=== PATIENT | female | born 1975 | race Caucasian/White ===

== ENCOUNTER 2016-08-01 10:17 | Emergency (ER) | payer BC ==
[~2016-08-01] VITALS: Ht 157.5 cm; Wt 78.0 kg
[~2016-08-01 10:17] MED LIST: ACET500C5 PO; PEN500 PO
[2016-08-01 10:23] VITALS: Ht 157.5 cm; Wt 78.0 kg
[2016-08-01] MEDS ORDERED: AMO500 PO (11:37)
[2016-08-01] MEDS ORDERED: IBUP-1542 PO (11:37)
--- NOTE | 2016-08-01 11:41 | ERD ---
ER Documentation Chief Complaint Date/Time DATE: 08/01/16 TIME: 11:40 Chief Complaint SORE THROAT X 2 DAYS HPI This 41-year-old female presents with sore throat last 2 days. She may have had a tactile fever at home. There is no history of cough, vomiting, abdominal pain. She is here with her daughter with similar symptoms. ROS All systems reviewed and are negative except as per history of present illness. Medications Home Meds Active Scripts Amoxicillin* (Amoxicillin*) 500 Mg Cap, 500 MG PO TID for 10 Days, CAP Prov:PRINCE JOSEPH MD 08/01/16 Ibuprofen* (Motrin*) 600 Mg Tab, 600 MG PO Q6, #15 TAB Prov:PRINCE JOSEPH MD 08/01/16 Acetaminophen* (Tylophen*) 500 Mg Capsule, 2 CAP PO Q8H Y for PAIN AND OR ELEVATED TEMP, #20 CAP Prov:YESENIA STEWART 04/15/15 Penicillin V Potassium* (Penicillin V K*) 500 Mg Tab, 500 MG PO BID for 10 Days , TAB Prov:YESENIA STEWART 04/15/15 Allergies Allergies: Coded Allergies: No Known Drug Allergies (Verified Allergy, Mild, 04/15/15) PMhx/Soc History of Surgery: No Anesthesia Reaction: No Hx Neurological Disorder: No Hx Respiratory Disorders: No Hx Cardiac Disorders: No Hx Psychiatric Problems: No Hx Miscellaneous Medical Probl: No Hx Alcohol Use: Yes Hx Substance Use: No Hx Tobacco Use: No Physical Exam Vitals Vital Signs Date Time Temp Pulse Resp B/P Pulse Ox O2 Delivery O2 Flow Rate FiO2 08/01/16 10:23 98.2 78 16 116/59 98 Physical Exam Const: [] Alert, [id number] per Head: Atraumatic Eyes: Normal Conjunctiva ENT: Normal External Ears, Nose and Mouth. Slight redness in the throat without exudate and tonsils normal size. Airways patent. Neck: Full range of motion..~ No meningismus. Resp: Clear to auscultation bilaterally Cardio: Regular rate and rhythm, no murmurs Abd: Soft, non tender, non distended. Normal bowel sounds Skin: No petechiae or rashes Back: No midline or flank tenderness Ext: No cyanosis, or edema Neur: Awake and alert Psych: Normal Mood and Affect Procedures/MDM Patient presents with URI symptoms. She complains of a sore throat I suspect he has a viral illness. Patient is requesting antibiotics and will be administered prescription with counseling that is likely viral and I am recommending hold antibiotics for 3-4 days and take only for persistent symptoms. There is no evidence of abscess or respiratory distress. The patient was stable with no new complaints during the ER course. Clinically, there is no current evidence to suggest meningitis, sepsis, acute abdomen, pneumonia, acute coronary syndrome, pulmonary embolism, or any other emergent condition appearing to require further evaluation or hospitalization. The patient should certainly return for any new or worsening symptoms per the aftercare instructions. They should otherwise follow-up with her primary care doctor for reevaluation this week. Departure Diagnosis: Primary Impression: Sore throat Condition: Stable Patient Instructions: Pharyngitis, Strep (Presumed) Additional Instructions: We will treat for bacterial infection but may be viral illness which may last a few more days. Recheck for new or worsening symptoms or primary care doctor. PRINCE JOSEPH MD Aug 01, 2016 11:41
== END 2016-08-01 12:16 | disposition home or self-care (01) ==
LOC: FTE 10:17
DX: J02.9 Acute pharyngitis, unspecified (principal)
CPT/HCPCS: 99283

== ENCOUNTER 2016-10-22 08:50 | Emergency (ER) | payer BC ==
[~2016-10-22] VITALS: Wt 78.0 kg
[~2016-10-22 08:50] MED LIST changes: +AMO500 PO; +IBUP-1542 PO
[2016-10-22] MEDS ORDERED: AMOX1TAB10 PO (09:37)
--- NOTE | 2016-10-22 09:37 | ERD ---
ER Documentation Chief Complaint Date/Time DATE: 10/22/16 Chief Complaint Throat pain, Congestion, Facial pain, Ear pain HPI The patient is a 41-year-old female who presents to the Emergency Department with complaint of fevers, facial pain, sore throat, ear pain and congestion. The patient reports that her symptoms began 11 days ago, and have been persistent, with no improvement. She has been using NyQuil, DayQuil and Tylenol cold, with no significant relief of symptoms. She reports symptoms of fevers, nasal congestion, maxillary sinus pressure, which is worsened upon leaning forward, and sore throat. Additionally, over the past several days she has developed a pressure-like pain to the left ear. She denies any otorrhea or bloody discharge from the ear. Denies any change in hearing, tinnitus or dizziness. Denies neck pain, neck stiffness or new rashes. Denies difficulty opening/closing the mouth, change in phonation, or difficulty tolerating her oral secretions. Denies eye redness, discharge, or visual changes. Denies any sick contacts with similar symptoms. ROS All systems reviewed and are negative except as per history of present illness. Medications Home Meds Active Scripts Mometasone Furoate* (Nasonex*) 50 Mcg/[place] - 17 Gm [place].pump, 1 SPRAY NASAL DAILY, #1 BOTTLE TO EACH NOSTRIL Prov:FIDE ANGELO PA-C 10/22/16 Ibuprofen* (Motrin*) 600 Mg Tab, 600 MG PO Q6, #30 TAB Prov:FIDE ANGELO PA-C 10/22/16 Amoxicillin/Potassium Clav (Amox-Clav 875-125 mg Tablet) 875-125 mg Tab, 1 TAB PO BID for 7 Days, TAB Prov:FIDE ANGELO PA-C 10/22/16 Amoxicillin* (Amoxicillin*) 500 Mg Cap, 500 MG PO TID for 10 Days, CAP Prov:PRINCE JOSEPH MD 08/01/16 Ibuprofen* (Motrin*) 600 Mg Tab, 600 MG PO Q6, #15 TAB Prov:PRINCE JOSEPH MD 08/01/16 Acetaminophen* (Tylophen*) 500 Mg Capsule, 2 CAP PO Q8H Y for PAIN AND OR ELEVATED TEMP, #20 CAP Prov:YESENIA STEWART 04/15/15 Penicillin V Potassium* (Penicillin V K*) 500 Mg Tab, 500 MG PO BID for 10 Days , TAB Prov:YESENIA STEWART 04/15/15 Allergies Allergies: Coded Allergies: No Known Drug Allergies (Verified Allergy, Mild, 04/15/15) PMhx/Soc History of Surgery: No Anesthesia Reaction: No Hx Neurological Disorder: No Hx Respiratory Disorders: No Hx Cardiac Disorders: No Hx Psychiatric Problems: No Hx Miscellaneous Medical Probl: No Hx Alcohol Use: Yes Hx Substance Use: No Hx Tobacco Use: No Physical Exam Vitals Vital Signs Date Time Temp Pulse Resp B/P Pulse Ox O2 Delivery O2 Flow Rate FiO2 10/22/16 08:57 97.2 80 17 116/59 97 Physical Exam GENERAL: Well-developed, well-nourished, in no acute distress HEENT: Head is normocephalic, atraumatic. Tenderness to palpation and percussion over maxillary sinuses, right > left. No tenderness over frontal sinus. No scleral pallor or icterus. Pupils equal, round and reactive to light. Extraocular movements intact. Conjunctiva pink. No eye redness or discharge. Purulent nasal discharge. Bilaterally tympanic membranes are clear with no evidence of erythema, effusion or dulling of the light reflex. No mastoid tenderness. Moist mucous membranes. Posterior pharynx mildly erythematous with postnasal drip. No exudates. No palatal petechiae. Uvula is midline. No trismus. No stridor. No excessive drooling. Phonation is normal. No submandibular swelling. No brawny induration. NECK: Supple. No masses, no tenderness, no lymphadenopathy. Trachea midline. No nuchal rigidity. Full range of motion. No meningismus. RESPIRATORY: Lungs are clear to auscultation bilaterally. No rales, rhonchi or wheezing. Equal breath sounds. Normal expiratory effort. CARDIOVASCULAR: Regular rate and rhythm. S1 and S2 normal. No murmurs, rubs, or gallops. GASTROINTESTINAL: Abdomen is soft, nontender, and nondistended. FLANK: No CVA tenderness, no mass or swelling. BACK: No midline tenderness. EXTREMITIES: No clubbing, cyanosis, or edema. Normal skin perfusion. Moving all extremities. Muscle tone is normal. No focal swelling or erythema. NEUROLOGIC: The patient is alert, awake, and oriented x 3. INTEGUMENT: Skin is clean, dry and intact. No rashes, lesions or petechiae present. PSYCHIATRIC: Appropriate; Cooperative. Procedures/MDM This is a 41-year-old female presenting to the emergency department complaining of fevers, maxillary pressure-like facial pain, purulent rhinorrhea, nasal congestion and sore throat. On physical examination, she had tenderness to palpation and percussion over the maxillary sinuses, right > left. Purulent mucoid nasal discharge noted. Posterior pharynx was mildly erythematous with postnasal drip. Otherwise, no exudates or palatal petechiae. She exhibited no altered mental status, neurologic deficits or meningeal signs. She was afebrile , with no tachycardia, no tachypnea, no signs of respiratory distress. She had a normal O2 saturation on room air. Her lungs were clear to auscultation, with no rales, rhonchi or wheezing. The differential diagnosis includes, but is not limited to, meningitis, encephalitis, sinusitis, migraine headache, tension headache, cluster headache, pseudotumor cerebri, upper respiratory infection, sepsis, otitis media, pneumonia, pertussis, pharyngitis, bronchitis, influenza. No evidence of acute sepsis, bacteremia, dehydration, meningitis, or other life-threatening etiology. Her condition remained stable and appropriate during her stay. After rest, the patient reports no new complaints.. Upon my review and interpretation of the patient's presentation and overall ER course, I believe the patient's symptoms are most consistent with acute maxillary sinusitis. The patient is well-appearing. She had no physical examination evidence of pneumonia. Patient's neck was supple, with no altered mental status, and therefore I doubt meningitis. Oropharynx was clear, with no exudates, petechiae, no associated anterior cervical lymphadenopathy, and therefore I doubt streptococcal pharyngitis. Uvula midline, no brawny induration , no trismus, no stridor, no submandibular swelling, no evidence of peritonsillar abscess, retropharyngeal abscess or Stevan's angina. Tympanic membranes were clear bilaterally, with no erythema or bulging noted, and therefore I doubt otitis media. At this time, the patient is in stable condition and therefore she can be discharged home with a prescription for Augmentin, Nasonex and Ibuprofen, and strict return precautions for signs of deteriorating or worsening condition. The patient is advised to follow up with her primary care provider for reevaluation and further management within 2-3 days, or return to the ER sooner for any worsening symptoms. I shared my medical decision making and plan with the patient at length and in great detail , and she verbally understands and agrees with the plan for further observation and care as an outpatient. At the time of discharge, all questions were answered. Departure Diagnosis: Primary Impression: Acute maxillary sinusitis Recurrence: not specified as recurrent Qualified Code: J01.00 - Acute maxillary sinusitis, recurrence not specified Condition: Stable Patient Instructions: Acute Sinusitis, Self-Care for Sinusitis, Sinusitis, Abx Tx Additional Instructions: Call your primary care doctor TOMORROW for an appointment during the next 2-3 days.See the doctor sooner or return here if your condition worsens before your appointment time. FIDE ANGELO PA-C October 22, 2016 09:37
[2016-10-22] MEDS ORDERED: IBUP-1542 PO (09:38)
[2016-10-22] MEDS ORDERED: NASO17 NASAL (09:40)
== END 2016-10-22 10:16 | disposition home or self-care (01) ==
LOC: FTE 08:50
DX: J01.00 Acute maxillary sinusitis, unspecified (principal)
CPT/HCPCS: 99284

== ENCOUNTER 2017-02-27 12:08 | Emergency (ER) | payer BC ==
[~2017-02-27] VITALS: Ht 165.1 cm; Wt 70.5 kg
[~2017-02-27 12:08] MED LIST changes: -AMO500 PO; +AMOX1TAB10 PO; +AMOX500C2 PO; +NASO17 NASAL; -PEN500 PO; +PENI500T PO
[2017-02-27 12:13] VITALS: Ht 165.1 cm; Wt 70.5 kg
--- NOTE | 2017-02-27 13:03 | ERD ---
ER Documentation Chief Complaint Date/Time DATE: 02/27/17 TIME: 12:59 Chief Complaint sorethroat x2 days, no sob, bilateral foot pain x1wk, denies trauma HPI 42-year-old female who presents emergency department for sore throat for 2 days. Also complains of bilateral plantar foot pain. Denies any trauma. Also reports that she felt like she had a fever last night but never took her temperature. Stated that she took Tylenol and Motrin last night without pain relief. LMP: This week. A2. Denies any headache, dizziness, blurry vision, neck pain, difficulty swallowing , loss of appetite, coughing, chest pain, shoulder pain, back pain, abdominal pain, nausea, vomiting, constipation, diarrhea, urinary symptoms, loss of bowel bladder control, recent exposure to any illness, recent antibiotic use in the last 3 months. No known drug allergies. No past medical history. No surgical history. Medication: [id number] Tylenol and Motrin. 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 Denies smoking, use of illegal drugs. ROS All systems reviewed and are negative except as per history of present illness. Medications Home Meds Active Scripts Benzonatate* (Tessalon Perle*) 100 Mg Capsule, 200 MG PO Q8H Y for COUGH, #14 CAP Prov:BRIAN DOHERTY 02/27/17 Albuterol Sulfate* (Proair HFA*) 8.5 Gm Hfa.aer.ad, 2 PUFF INH Q4, #1 INHALER Prov:BRIAN DOHERTY F 02/27/17 Cyclobenzaprine Hcl* (Cyclobenzaprine Hcl*) 10 Mg Tablet, 10 MG PO Q12 Y for PAIN, #15 TAB Prov:PASBRIAN SO F 02/27/17 Ibuprofen* (Motrin*) 800 Mg Tab, 800 MG PO Q8 Y for PAIN AND OR ELEVATED TEMP, # 30 TAB Prov:BRIAN DOHERTY 02/27/17 Amoxicillin/Potassium Clav (Amox-Clav 875-125 mg Tablet) 875-125 mg Tab, 1 TAB PO BID for 7 Days, #14 TAB Prov:BRIAN DOHERTY F 02/27/17 Mometasone Furoate* (Nasonex*) 50 Mcg/[place] - 17 Gm [place].pump, 1 SPRAY NASAL DAILY, #1 BOTTLE TO EACH NOSTRIL Prov:FIDE ANGELO SANGEETHAWon 10/22/16 Ibuprofen* (Motrin*) 600 Mg Tab, 600 MG PO Q6, #30 TAB Prov:FIDE ANGELO PA-C 10/22/16 Amoxicillin/Potassium Clav (Amox-Clav 875-125 mg Tablet) 875-125 mg Tab, 1 TAB PO BID for 7 Days, TAB Prov:FIDE ANGELO SANGEETHAJosueDori 10/22/16 Amoxicillin* (Amoxicillin*) 500 Mg Cap, 500 MG PO TID for 10 Days, CAP Prov:PRINCE JOSEPH MD 08/01/16 Ibuprofen* (Motrin*) 600 Mg Tab, 600 MG PO Q6, #15 TAB Prov:PRINCE JOSEPH MD 08/01/16 Acetaminophen* (Tylophen*) 500 Mg Capsule, 2 CAP PO Q8H Y for PAIN AND OR ELEVATED TEMP, #20 CAP Prov:YESENIA STEWART 04/15/15 Penicillin V Potassium* (Penicillin V K*) 500 Mg Tab, 500 MG PO BID for 10 Days , TAB Prov:YESENIA STEWART 04/15/15 Allergies Allergies: Coded Allergies: No Known Drug Allergies (Verified Allergy, Mild, 04/15/15) PMhx/Soc History of Surgery: No Anesthesia Reaction: No Hx Neurological Disorder: No Hx Respiratory Disorders: No Hx Cardiac Disorders: No Hx Psychiatric Problems: No Hx Miscellaneous Medical Probl: No Hx Alcohol Use: Yes Hx Substance Use: No Hx Tobacco Use: No Physical Exam Vitals Vital Signs Date Time Temp Pulse Resp B/P Pulse Ox O2 Delivery O2 Flow Rate FiO2 02/27/17 12:13 97.6 94 20 102/53 97 Physical Exam Const: [] Head: Atraumatic Eyes: Normal Conjunctiva ENT: Normal External Ears, Nose and Mouth. Frontal and maxillary sinus tenderness. Throat: Uvula is in midline and not displaced. Tonsils are bilaterally +1 without redness and without exudates. Tolerating secretions. Patent airway. Speaks full and clear sentences. Neck: Full range of motion..~ No meningismus. Resp: Clear to auscultation bilaterally Cardio: Regular rate and rhythm, no murmurs Abd: Soft, non tender, non distended. Normal bowel sounds Skin: No petechiae or rashes Back: No midline or flank tenderness Ext: No cyanosis, or edema. Bilateral hips are stable and unremarkable. Lateral knees are stable and unremarkable. Bilateral ankle/foot has no evidence of trauma and has good and full range of motion without tenderness. Mild tenderness to palpation to bilateral plantar area. Skin is intact. Neur: Awake and alert Psych: Normal Mood and Affect Procedures/MDM 42-year-old female who presents emergency department for sore throat for 2 days. Also complains of bilateral plantar foot pain. Denies any trauma. Also reports that she felt like she had a fever last night but never took her temperature. Stated that she took Tylenol and Motrin last night without pain relief. LMP: This week. A2. Denies any headache, dizziness, blurry vision, neck pain, difficulty swallowing , loss of appetite, coughing, chest pain, shoulder pain, back pain, abdominal pain, nausea, vomiting, constipation, diarrhea, urinary symptoms, loss of bowel bladder control, recent exposure to any illness, recent antibiotic use in the last 3 months. No known drug allergies. No past medical history. No surgical history. Medication: [id number] Tylenol and Motrin. 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 Denies smoking, use of illegal drugs. Physical examination: Frontal and maxillary sinus tenderness. Patent airway. Lung sounds are clear to auscultation. Prescription: Augmentin. Motrin. Flexeril. Pro-air. Tessalon. Follow-up with primary care physician the next 24-48 hours. Come back here in the emergency department for any new symptoms or any worsening of symptoms. All questions and concerns are answered. Patient verbalized understanding and agreed with the plan of care. Hemodynamically stable on discharge. Departure Diagnosis: Primary Impression: Sore throat Additional Impressions: Sinusitis Plantar fasciitis Condition: Stable Additional Instructions: Follow-up with primary care physician the next 24-48 hours. Come back here in the emergency department for any new symptoms or any worsening of symptoms. All questions and concerns are answered. Patient verbalized understanding and agreed with the plan of care. BRIAN DOHERTY Feb 27, 2017 13:03
[2017-02-27] MEDS ORDERED: IBUP800T25 PO (13:07)
[2017-02-27] MEDS ORDERED: AMOX1TAB10 PO (13:07)
[2017-02-27] MEDS ORDERED: CYCL-319 PO (13:07)
[2017-02-27] MEDS ORDERED: BENZ100C70 PO (13:08)
[2017-02-27] MEDS ORDERED: ALBU8.5H3 INH (13:08)
== END 2017-02-27 13:23 | disposition home or self-care (01) ==
LOC: FTE 12:08
DX: J32.9 Chronic sinusitis, unspecified (principal); M72.2 Plantar fascial fibromatosis
CPT/HCPCS: 99284

== ENCOUNTER 2017-04-25 18:09 | Emergency (ER) | payer BC ==
[~2017-04-25] VITALS: Ht 157.5 cm; Wt 79.0 kg
[~2017-04-25 18:09] MED LIST changes: +ALBU8.5H3 INH; +BENZ100C70 PO; +CYCL-319 PO; +IBUP800T25 PO
[2017-04-25 18:20] VITALS: Ht 157.5 cm; Wt 79.0 kg
[2017-04-25 18:57] LABS: URINE BLOOD (Dip) POC Negative (NEGATIVE)
[2017-04-25] MEDS ORDERED: AZIT250T94 PO (19:38)
[2017-04-25] MEDS ORDERED: D-ME473S2 PO (19:38)
--- NOTE | 2017-04-25 19:41 | ERD ---
ER Documentation Chief Complaint Chief Complaint cold symptoms x 2 days HPI This 42-year-old female presents with productive cough for last 3 days. She believes he has tactile fevers but no temperature at triage. Denies chest pain , vomiting, abdominal pain, neck stiffness, rashes. She has not is complaining of dysuria. She denies any flank pain or abdominal pain.. Here with her daughter with similar planes of URI symptoms and dysuria as well. ROS All systems reviewed and are negative except as per history of present illness. Medications Home Meds Active Scripts Dextromethorphan Hb-Promethazine Hcl* (Promethazine DM* Syrup) 473 Ml Syrup, 5 ML PO Q6 Y for COUGH for 4 Days, ML 4 OZ Prov:PRINCE JOSEPH MD 04/25/17 Azithromycin* (Zithromax*) 250 Mg Tablet, 250 MG PO .ZPACK DIRECTED, #6 TAB TAKE 500 MG (2 TABS) THE FIRST DAY THEN 250 MG (1 TAB) DAYS 2-5 Prov:PRINCE JOSEPH MD 04/25/17 Benzonatate* (Tessalon Perle*) 100 Mg Capsule, 200 MG PO Q8H Y for COUGH, #14 CAP Prov:PASILABRIAN WOLFE 02/27/17 Albuterol Sulfate* (Proair HFA*) 8.5 Gm Hfa.aer.ad, 2 PUFF INH Q4, #1 INHALER Prov:PASILABRIAN WOLFE F 02/27/17 Cyclobenzaprine Hcl* (Cyclobenzaprine Hcl*) 10 Mg Tablet, 10 MG PO Q12 Y for PAIN, #15 TAB Prov:PASILABRIAN WOLFE F 02/27/17 Ibuprofen* (Motrin*) 800 Mg Tab, 800 MG PO Q8 Y for PAIN AND OR ELEVATED TEMP, # 30 TAB Prov:PASILABANBRIAN F 02/27/17 Amoxicillin/Potassium Clav (Amox-Clav 875-125 mg Tablet) 875-125 mg Tab, 1 TAB PO BID for 7 Days, #14 TAB Prov:PASILABRIAN WOLFE F 02/27/17 Mometasone Furoate* (Nasonex*) 50 Mcg/[place] - 17 Gm [place].pump, 1 SPRAY NASAL DAILY, #1 BOTTLE TO EACH NOSTRIL Prov:FIDE ANGELO PA-C 10/22/16 Ibuprofen* (Motrin*) 600 Mg Tab, 600 MG PO Q6, #30 TAB Prov:FIDE ANGELO JENNIFER 10/22/16 Amoxicillin/Potassium Clav (Amox-Clav 875-125 mg Tablet) 875-125 mg Tab, 1 TAB PO BID for 7 Days, TAB Prov:GIFIDE SIERRA JENNIFER 10/22/16 Amoxicillin* (Amoxicillin*) 500 Mg Cap, 500 MG PO TID for 10 Days, CAP Prov:PRINCE JOSEPH MD 08/01/16 Ibuprofen* (Motrin*) 600 Mg Tab, 600 MG PO Q6, #15 TAB Prov:PRINCE JOSEPH MD 08/01/16 Acetaminophen* (Tylophen*) 500 Mg Capsule, 2 CAP PO Q8H Y for PAIN AND OR ELEVATED TEMP, #20 CAP Prov:YESENIA STEWART 04/15/15 Penicillin V Potassium* (Penicillin V K*) 500 Mg Tab, 500 MG PO BID for 10 Days , TAB Prov:YESENIA STEWART 04/15/15 Allergies Allergies: Coded Allergies: No Known Drug Allergies (Verified Allergy, Mild, 04/15/15) PMhx/Soc History of Surgery: No Anesthesia Reaction: No Hx Neurological Disorder: No Hx Respiratory Disorders: No Hx Cardiac Disorders: No Hx Psychiatric Problems: No Hx Miscellaneous Medical Probl: No Hx Alcohol Use: No Hx Substance Use: No Hx Tobacco Use: No Physical Exam Vitals Vital Signs Date Time Temp Pulse Resp B/P Pulse Ox O2 Delivery O2 Flow Rate FiO2 04/25/17 18:20 98.0 80 18 147/70 96 Physical Exam Const: [] Letter, [id number]. Head: Atraumatic Eyes: Normal Conjunctiva ENT: Normal External Ears, Nose and Mouth. TMs normal. Neck: Full range of motion..~ No meningismus. Resp: Clear to auscultation bilaterally slight rhonchi without rales, wheezing or retractions. Cardio: Regular rate and rhythm, no murmurs Abd: Soft, non tender, non distended. Normal bowel sounds Skin: No petechiae or rashes Back: No midline or flank tenderness Ext: No cyanosis, or edema Neur: Awake and alert Psych: Normal Mood and Affect Results 24 hrs Laboratory Tests Test 04/25/17 18:57 Bedside Urine pH (LAB) 5.5 Bedside Urine Protein (LAB) Negative Bedside Urine Glucose (UA) Negative Bedside Urine Ketones (LAB) Negative Bedside Urine Blood Negative Bedside Urine Nitrite (LAB) Negative Bedside Urine Leukocyte Esterase (L Negative Procedures/MDM Patient presents with productive cough last 3 days. She may have a viral URI. Patient is requesting antibiotics. Patient was counseled on likely viral illness but given a prescription encouraged to hold and allow viral illness to resolve. There is no evidence of hypoxemia or respiratory distress. Urine is negative for signs of infection, nitrates, glucose. The patient was stable with no new complaints during the ER course. Clinically, there is no current evidence to suggest meningitis, sepsis, acute abdomen, pneumonia, acute coronary syndrome, pulmonary embolism, or any other emergent condition appearing to require further evaluation or hospitalization. The patient should certainly return for any new or worsening symptoms per the aftercare instructions. They should otherwise follow-up with her primary care doctor for reevaluation this week. Departure Diagnosis: Primary Impression: Upper respiratory infection URI type: unspecified URI Qualified Code: J06.9 - Upper respiratory tract infection, unspecified type Condition: Stable Patient Instructions: Acute Bronchitis Additional Instructions: Urine normal today. Recheck for new or worsening symptoms with primary care doctor. PRINCE JOSEPH MD Apr 25, 2017 19:41
== END 2017-04-25 20:10 | disposition home or self-care (01) ==
LOC: FTE 18:09
DX: J06.9 Acute upper respiratory infection, unspecified (principal)
CPT/HCPCS: 81003; 99284

== ENCOUNTER 2017-05-26 14:58 | Emergency (ER) | END 2017-05-26 18:55 | disposition home or self-care (01) ==

== ENCOUNTER 2017-11-28 13:05 | Day surgery (SDC) | END 2017-11-28 16:50 | disposition home or self-care (01) ==

== ENCOUNTER 2018-03-04 16:27 | Emergency (ER) | END 2018-03-04 19:58 | disposition home or self-care (01) ==